=== PATIENT | male | born 1990 | race African-American/Black ===

== ENCOUNTER 2017-11-20 02:27 | Emergency (ER) | payer SELFPAY ==
[~2017-11-20] VITALS: Ht 172.7 cm; Wt 77.1 kg
[2017-11-20 02:28] VITALS: BP 126/77
--- NOTE | 2017-11-20 02:28 | NUR ---
TO BED # 8 AMBULATORY, REPORT GIVEN TO VISHAL NUNO
--- NOTE | 2017-11-20 02:28 | NUR ---
27/M CAME IN W C/O LOWER ABD PAIN AND TESTICULAR PAIN X 6 DAYS. PER PT WAS SEEN IN ER 3 DAYS AGO FOR SIMILAR SX AND WAS GGIVEN ANTIBIOTIC RX. REPORTS MILD SWEELLING TO SCROTUM, NO DISCHARGES. DENIES TRAUMA, FEVER/CHILLS, N/V/D. DENIES PMH
[2017-11-20 03:54] VITALS: BP 128/71
--- NOTE | 2017-11-20 03:54 | NUR ---
Patient discharged with v/s stable. Written and verbal after care instructions given and explained. Patient alert, oriented and verbalized understanding of instructions. Ambulatory with steady gait. All questions addressed prior to discharge. ID band removed. Patient advised to follow up with PMD. Rx of LACTULOSE given. Patient educated on indication of medication including possible reaction and side effects. Opportunity to ask questions provided and answered.
== END 2017-11-20 03:54 | disposition home or self-care (01) ==
LOC: MED 02:27
DX: K59.00 Constipation, unspecified (principal); F12.10 Cannabis abuse, uncomplicated
CPT/HCPCS: 99283